=== PATIENT | female | born 1930 | race Hispanic/Latino ===

== ENCOUNTER 2017-10-30 19:06 | Emergency (ER) | payer OTHER ==
[~2017-10-30] VITALS: Ht 157.5 cm; Wt 61.2 kg
[~2017-10-30 19:06] MED LIST: CETIRIZINE HCL10 M1 PO; CITALOPRAM HBR20 MG PO; FERROUS SULFAT325 M1 PO; METFORMIN HCL500 M3 PO; MINOCYCLINE HCL50 MG PO; NIFEDICAL XL30 MG PO; Z.0.GLYBURIDE MICRON PO; Z.0.LOSARTAN POTAS10 PO; Z.0.SIMVASTATIN20 MG PO
[2017-10-30] MEDS ORDERED: PANTOPRAZOLE 40 MG 10ML VIAL IV STA (19:39)
[2017-10-30 20:09] LABS: BASOPHILS # (AUTO) 0.1 (0.0-0.1); EOSINOPHILS # (AUTO) 0.4 (0.0-0.4); EOSINOPHILS % 5.3 % (0.0-6.0); HEMATOCRIT 35.5 % (34.2-44.1); LYMPHOCYTES # (AUTO) 2.5 (1.0-3.2); LYMPHOCYTES % 34.1 % (18.0-39.1); MEAN CORPUSCULAR HEMOGLOBIN 31.3 pg (28-32); MEAN CORPUSCULAR HGB CONC 33.8 g/dL (31-35); MEAN CORPUSCULAR VOLUME 92.4 fL (81-99); MONOCYTES # (AUTO) 0.5 (0.2-0.8); MONOCYTES % 6.4 % (4.4-11.3); NEUTROPHILS # (AUTO) 3.9 (2.1-6.9); NEUTROPHILS % 52.9 % (38.7-80.0); PLATELET COUNT 172 x10e3/uL (140-360); RED BLOOD COUNT 3.84 x10e6/uL (3.6-5.1); RED CELL DISTRIBUTION WIDTH 12.7 % (11.7-14.4)
[2017-10-30 20:18] LABS: INR 1.02; PARTIAL THROMBOPLASTIN TIME 26.3 seconds (23.8-35.5); PROTHROMBIN TIME 12.6 seconds (11.9-14.5)
[2017-10-30 20:20] LABS: CLARITY,URINE CLEAR (CLEAR); COLOR,URINE YELLOW (YELLOW)
[2017-10-30 20:21] LABS: BACTERIA,URINE RARE /HPF; BILIRUBIN,URINE NEGATIVE (NEGATIVE); EPITHELIAL CELLS,URINE RARE /LPF; KETONES,URINE NEGATIVE (NEGATIVE); LEUKOCYTE ESTERASE ,URINE NEGATIVE (NEGATIVE); NITRITE,URINE NEGATIVE (NEGATIVE); PROTEIN,URINE DIPSTICK NEGATIVE (NEGATIVE); RBC,URINE 0-5 /HPF (0-5); URINE UROBILINOGEN 0.2 mg/dL (0.2 - 1); WBC,URINE (MAN) 0-5 /HPF (0-5)
[2017-10-30] MEDS ORDERED: METOPROLOL SUCC50 MG PO (20:23)
[2017-10-30] MEDS ORDERED: TEMAZEPAM15 MG PO (20:23)
[2017-10-30] MEDS ORDERED: GLIPIZIDE5 MG PO (20:23)
[2017-10-30] MEDS ORDERED: CLOBETASOL PROP15 G1 TOP (20:23)
[2017-10-30] MEDS ORDERED: ULTRAM 50MG50 MG PO (20:23)
[2017-10-30] MEDS ORDERED: OMEPRAZOLE40 MG PO (20:23)
[2017-10-30] MEDS ORDERED: [UNRECOGNIZED DRUG - OTHER] (20:23)
[2017-10-30] MEDS ORDERED: LOSARTAN POTASS25 MG PO (20:23)
[2017-10-30] MEDS ORDERED: LEVOCETIRIZINE D5 MG PO (20:23)
[2017-10-30] MEDS ORDERED: LEVOTHYROXINE50 MCG PO (20:23)
[2017-10-30] MEDS ORDERED: VITAMIN B-121000 MCG INJ (20:23)
[2017-10-30 20:29] LABS: ALANINE AMINOTRANSFERASE 13 IU/L (0-55); ALBUMIN 3.9 g/dL (3.5-5.0); ALBUMIN/GLOBULIN RATIO 1.1 (0.8-2.0); ALKALINE PHOSPHATASE 121 IU/L (40-150); ANION GAP 12.5 mmol/L (8-16); BLOOD UREA NITROGEN 13 mg/dL (7-26); BUN/CREATININE RATIO 15 (6-25); CALCIUM 9.7 mg/dL (8.4-10.2); CARBON DIOXIDE 28 mmol/L (22-29); CHLORIDE 104 mmol/L (98-107); CREATINE KINASE 92 IU/L (29-168); CREATININE, SERUM 0.84 mg/dL (0.57-1.11); EST GLOMERULAR FILTRATION RATE > 60 ML/MIN (60-); GLUCOSE 130 mg/dL (74-118); LIPASE 30 U/L (8-78); MAGNESIUM 1.3 MG/DL (1.3-2.1); POTASSIUM 3.5 mmol/L (3.5-5.1); SODIUM 141 mmol/L (136-145)
--- NOTE | 2017-10-30 22:41 | Diagnostic Imaging Report ---
EXAMINATION: CHEST SINGLE (PORTABLE) INDICATION: Abdominal pain COMPARISON: 02/06/2017 and 11/29/2015 FINDINGS: TUBES and LINES: The pacemaker is intact. LUNGS: Lungs are not well inflated. Lungs are clear. There is mild prominence of the central pulmonary vasculature, consistent with pulmonary venous congestion. PLEURA: No pleural effusion or pneumothorax. HEART AND MEDIASTINUM: Cardiac size is mildly enlarged. There are atherosclerotic calcifications within the aorta. BONES AND SOFT TISSUES: No acute osseous lesion. Soft tissues are unremarkable. UPPER ABDOMEN: No free air under the diaphragm. IMPRESSION: No acute thoracic abnormality. Signed by: Dr. Lee Victoria M.D. on 10/30/2017 10:34 PM
--- NOTE | 2017-10-30 23:48 | Diagnostic Imaging Report ---
EXAM: CT Abdomen and Pelvis WITHOUT contrast INDICATION: Right lower quadrant pain, bilateral flank pain COMPARISON: None. TECHNIQUE: Abdomen and pelvis were scanned utilizing a multidetector helical scanner from the lung base to the pubic symphysis without administration of IV contrast. Absence of intravenous contrast decreases sensitivity for detection of focal lesions and vascular pathology. Coronal and sagittal reformations were obtained. Routine protocol was performed. IV CONTRAST: None. ORAL CONTRAST: None RADIATION DOSE: Total DLP: 295.57 mGy*cm Estimated effective dose: (DLP x 0.015 x size factor) mSv COMPLICATIONS: None FINDINGS: LINES and TUBES: Pacemaker visualized with the leads in the right knee Eloisa and right ventricle LOWER THORAX: Minimal bibasilar atelectasis. Extensive calcification of the aortic and mitral valves HEPATOBILIARY: No focal hepatic lesions. No biliary ductal dilation. GALLBLADDER: There are multiple stones in the gallbladder. No wall thickening. SPLEEN: No splenomegaly. PANCREAS: No focal masses or ductal dilatation. ADRENALS: No adrenal nodules KIDNEYS/URETERS: No hydronephrosis. 1.5 cm simple cyst in the right kidney. No stones. GI TRACT: No abnormal distention, wall thickening, or evidence of bowel obstruction. There are diverticula within the colon without evidence of diverticulitis. Appendix is normal. PELVIC ORGANS/BLADDER: Mild circumferential thickening of the urinary bladder. LYMPH NODES: No lymphadenopathy. VESSELS: There is moderate atherosclerotic disease in the aorta and major arterial branches. PERITONEUM / RETROPERITONEUM: No free air or fluid. BONES: There are degenerative changes in the lumbar spine. SOFT TISSUES: Unremarkable. IMPRESSION: 1. Cholelithiasis without evidence of acute cholecystitis, however, the size of the gallbladder is prominent (hydrops) and may be the source of chronic pain. 2. No evidence of nephrolithiasis or hydronephrosis. 3. Diverticulosis without evidence of diverticulitis. 4. Mild circumferential thickening of the urinary bladder suggestive of cystitis in the appropriate clinical setting Signed by: Dr. Lee Victoria M.D. on 10/30/2017 11:44 PM
[2017-10-31] MEDS ORDERED: NIFEDIPINE 10 MG CAP PO ONE (02:00)
[2017-10-31 02:40] VITALS: BP 111/51
== END 2017-10-31 03:00 | disposition home or self-care (01) ==
LOC: ER 19:06
DX: K80.20 Calculus of gallbladder without cholecystitis without obstruction (principal); Z88.0 Allergy status to penicillin; Z95.0 Presence of cardiac pacemaker; I10 Essential (primary) hypertension; E11.9 Type 2 diabetes mellitus without complications; E78.5 Hyperlipidemia, unspecified; E03.9 Hypothyroidism, unspecified
CPT/HCPCS: 36415; 71045; 74176; 80053; 81001; 82550; 82553; 83690; 83735; 84484; 85025; 85610; 85730; 87086; 93005; 99284